=== PATIENT | female | born 1950 | race African-American/Black ===

== ENCOUNTER 2024-04-23 15:32 | Inpatient (IN) | payer MEDICARE, MEDICAID ==
[~2024-04-23] VITALS: Ht 152.4 cm; Wt 66.7 kg
[2024-04-23] MEDS: NITROGLYCERIN 0.4MG TABLET SL SL PRN (17:31)
[2024-04-23] MEDS: ASPIRIN 81MG TABLET PO ONE (17:31)
[2024-04-23 17:54] LABS: BASOPHILS % 0.8 % (0.0-2.0); EOSINOPHILS % 1.2 % (0.0-5.0); HEMATOCRIT. 37.8 % (36.0-48.0); HEMOGLOBIN. 12.6 g/dL (12.0-16.0); LYMPHOCYTES % 25.9 % (20.0-50.0); MEAN CORPUSCULAR HEMOGLOBIN 29.3 pg (28.0-32.0); MEAN CORPUSCULAR HGB CONC 33.3 g/dL (31.0-37.0); MEAN CORPUSCULAR VOLUME 88.1 fL (81.0-99.0); MEAN PLATELET VOLUME 6.6 fl (7.4-10.4); MONOCYTES % 11.9 % (2.0-8.0); NEUTROPHILS % 60.2 % (40.0-76.0); PLATELET 403 x1000/uL (130-400); RED BLOOD CELL COUNT 4.29 mill/uL (4.2-5.4); RED CELL DISTRIBUTION WIDTH 13.6 % (11.6-14.6); WHITE BLOOD COUNT 5.7 x1000/uL (4.5-11.0)
[2024-04-23 18:01] LABS: CHLORIDE 100 mEq/L (98-107); POTASSIUM 4.7 mEq/L (3.5-5.1); SODIUM 130 mEq/L (136-145)
[2024-04-23 18:02] LABS: CALCIUM 9.5 mg/dL (8.7-10.4); CARBON DIOXIDE 28 mEq/L (21-32)
[2024-04-23 18:04] LABS: D-DIMER 0.78 mg/L FEU (<0.50); PARTIAL THROMBOPLASTIN TIME 25.8 sec (23.4-31.0); PROTHROMBIN TIME 10.7 sec (9.6-11.0)
[2024-04-23 18:07] LABS: CREATININE 0.8 mg/dL (0.6-1.0); GLUCOSE 104 mg/dL (70-105); UREA NITROGEN BLOOD 10 mg/dL (9-23)
[2024-04-23 18:08] LABS: ALANINE AMINOTRANSFERASE 8 IU/L (10-49); ASPARTATE AMINOTRANSFERASE 12 IU/L (<34); BILIRUBIN TOTAL 0.2 mg/dL (0.1-1.0); PROTEIN TOTAL 7.3 g/dL (6.0-8.3); TROPONIN I HIGH SENSITIVITY 5 ng/L (3.0-34)
[2024-04-23 18:09] LABS: BILIRUBIN DIRECT < 0.1 mg/dL (<=3.0)
[2024-04-24] MEDS ORDERED: NITROGLYCERIN 0.4MG TABLET SL SL PRN (00:15)
[2024-04-24] MEDS ORDERED: IPRATROPIUM/ALBUTEROL 0.5-3(2.5)MG/3ML NEB HHN SCH (00:15)
[2024-04-24] MEDS ORDERED: ONDANSETRON HCL 4MG/2ML INJ IV PRN (00:15)
[2024-04-24] MEDS ORDERED: IPRATROPIUM/ALBUTEROL 0.5-3(2.5)MG/3ML NEB HHN PRN (00:15)
[2024-04-24] MEDS: ENOXAPARIN 80MG/0.8ML SYR SUBCUT NR (00:18)
[2024-04-24] MEDS: ENOXAPARIN 80MG/0.8ML SYR SUBCUT ONE (00:20)
[2024-04-24] MEDS: IOHEXOL-350 100 ML BOTTLE ONE (00:20)
[2024-04-24 01:50] VITALS: BP 106/49; PULSE 82; RESP 16; TEMP 36.50292; O2SAT 96
[2024-04-24 04:00] VITALS: BP 137/68; PULSE 83; RESP 18; TEMP 36.55848; O2SAT 99
[2024-04-24] MEDS: ASPIRIN 81MG TABLET PO SCH (09:20)
[2024-04-24] MEDS: PANTOPRAZOLE SODIUM 40 MG/VIAL IV SCH (09:21)
[2024-04-24] MEDS ORDERED: FERR325T30 PO (17:03)
[2024-04-24] MEDS ORDERED: CARB200T6 PO (17:03)
[2024-04-24] MEDS ORDERED: SERT-422 PO (17:03)
[2024-04-24] MEDS: CARBAMAZEPINE 200MG TABLET PO SCH (17:29)
[2024-04-24] MEDS: ENOXAPARIN 40MG/0.4ML SYR SUBCUT SCH (21:39)
[2024-04-25] VITALS: BP 122/77; PULSE 73; RESP 16; TEMP 35.8362; O2SAT 99
[2024-04-25] MEDS: MAGNESIUM/ALUMINUM HYDROXIDE/SIMETHICONE 30ML UDC PO SCH (00:02)
[2024-04-25 00:56] VITALS: BP 122/77; PULSE 73; RESP 16; TEMP 35.862
[2024-04-25 04:00] VITALS: BP 137/82; PULSE 78; RESP 20; TEMP 36.50292; O2SAT 97
[2024-04-25 07:01] LABS: CALCIUM 8.8 mg/dL (8.7-10.4); CARBON DIOXIDE 27 mEq/L (21-32); CHLORIDE 103 mEq/L (98-107); POTASSIUM 4.2 mEq/L (3.5-5.1); SODIUM 135 mEq/L (136-145)
[2024-04-25 07:06] LABS: CREATININE 0.7 mg/dL (0.6-1.0); GLUCOSE 98 mg/dL (70-105)
[2024-04-25 07:07] LABS: LDL CHOLESTEROL 75 mg/dL (5-100); TRIGLYCERIDE 106 mg/dL (0-150); UREA NITROGEN BLOOD 9 mg/dL (9-23)
[2024-04-25 07:08] LABS: CHOLESTEROL 147 mg/dL (<200); HDL CHOLESTEROL 50 mg/dL (>65)
[2024-04-25 08:00] VITALS: BP 98/59; PULSE 82; RESP 18; TEMP 36.44736; O2SAT 97
[2024-04-25] MEDS: SERTRALINE HCL 50MG TABLET PO SCH (09:05)
[2024-04-25] MEDS: FERROUS SULFATE 325MG TABLET PO SCH (09:06)
[2024-04-25] MEDS ORDERED: TRAMADOL 50MG TABLET PO PRN (11:15)
[2024-04-25] MEDS ORDERED: ACETAMINOPHEN 325MG TABLET PO PRN (11:15)
[2024-04-25] MEDS ORDERED: NALOXONE HCL 0.4MG/ML VIAL IV PRN (11:15)
[2024-04-25] MEDS ORDERED: ASPI-1160 PO (12:33)
[2024-04-25] MEDS ORDERED: FAMO20TA8 PO (12:33)
[2024-04-25] MEDS ORDERED: PANT40TA51 PO (12:37)
[2024-04-25] MEDS: CLONIDINE 0.1MG TABLET PO NR (13:25)
[2024-04-25 13:28] VITALS: BP 159/105; PULSE 84; TEMP 98.1; O2SAT 99
== END 2024-04-25 14:30 | disposition home or self-care (01) | DRG 243 ==
LOC: ER 15:32 → 5WST 21:12 → EDBEDREQ 21:39 → EDBEDREQTM 21:39 → 7WST 04-24 22:43
PROVIDERS: ADMIT Hospitalist; ATTEND Hospitalist
DX: K21.9 Gastro-esophageal reflux disease without esophagitis (principal); K44.9 Diaphragmatic hernia without obstruction or gangrene; Z86.73 Personal history of transient ischemic attack (TIA), and cerebral infarction without residual deficits; Z79.82 Long term (current) use of aspirin; R13.10 Dysphagia, unspecified
CPT/HCPCS: 36415; 71045; 71275; 74230; 80048; 80061; 80076; 83880; 84484; 85025; 85379; 92610; 92611; 93005; 93970; 99285; J1650; J2470; Q9967